=== PATIENT | male | born 1995 | race Caucasian/White ===

== ENCOUNTER 2019-01-03 15:59 | Emergency (ER) | payer OTHER ==
[2019-01-03 16:23] VITALS: BP 117/75
--- NOTE | 2019-01-03 17:02 | UC ---
Back Pain HPI - HPI Summary HPI Summary: 23-year-old male who was lifting weights while squatting and he felt some pain in his right lower back. He ambulates without difficulty. He denies any saddle anesthesia, denies any numbness or tingling in his extremities. This happened today. - History of Current Complaint Chief Complaint: UCBackPain Stated Complaint: BACK PAIN Time Seen by Provider: 01/03/19 16:55 Hx Obtained From: Patient Onset/Duration: Sudden Onset Timing: Intermittent Severity Initially: Mild Severity Currently: Mild Pain Intensity: 5 Character: Dull, Aching Aggravating Factor(s): Bending Alleviating Factor(s): Rest Associated Signs And Symptoms: Positive: Negative. Negative: Swelling, Redness , Bruising, Fever, Weakness, Numbness, Tingling, Abdominal Pain, Flank Pain, Bladder Incontinence, Bowel Incontinence, Pain with Weight Bearing - Allergies/Home Medications Allergies/Adverse Reactions: Allergies Allergy/AdvReac Type Severity Reaction Status Date / Time No Known Allergies Allergy Verified 01/03/19 16:23 Home Medications: Home Medications Ibuprofen TAB* [Motrin TAB* 400 MG] 400 mg PO Q6H PRN 01/03/19 [History Confirmed 01/03/19] PMH/Surg Hx/FS Hx/Imm Hx Previously Healthy: Yes - Surgical History Surgical History: None - Family History Known Family History: Positive: Non-Contributory - Social History Occupation: Student Alcohol Use: Weekly Substance Use Type: None Smoking Status (MU): Never Smoked Tobacco Review of Systems All Other Systems Reviewed And Are Negative: Yes Motor: Positive: Negative Neurovascular: Positive: Negative Musculoskeletal: Positive: Other: - Mild right lower back pain. Neurological: Positive: Negative Psychological: Positive: Negative Is Patient Immunocompromised?: No Physical Exam Triage Information Reviewed: Yes Appearance: Well-Appearing, No Pain Distress, Well-Nourished Vital Signs: Initial Vital Signs Temp 98.7 F 01/03/19 16:18 Pulse 75 01/03/19 16:18 Resp 16 01/03/19 16:18 BP 117/75 01/03/19 16:18 Pulse Ox 99 01/03/19 16:18 Vital Signs Reviewed: Yes Respiratory: Positive: Lungs clear, Normal breath sounds, No respiratory distress, No accessory muscle use Cardiovascular: Positive: RRR, No Murmur, Pulses Normal, Brisk Capillary Refill Abdomen Description: Positive: Nontender, No Organomegaly, Soft. Negative: CVA Tenderness (R), CVA Tenderness (L) Bowel Sounds: Positive: Present Musculoskeletal: Positive: Strength Intact, ROM Intact, Other: - Spine is nontender, lower back is nontender on palpation. Negative straight leg raise. Neurological Exam: Normal Neurological: Positive: Alert, Muscle Tone Normal, Other: - Reflexes +2 at the knee. Psychological Exam: Normal Skin Exam: Normal - No erythema, bruising, swelling or deformity noted. Back Pain Course/Dx - Course Course Of Treatment: Patient is comfortable here and appears pain free. He mostly has some right lower back pain when he is bending as in doing a squat. - Differential Dx/Diagnosis Provider Diagnosis: Low back strain Discharge ED - Sign-Out/Discharge Documenting (check all that apply): Patient Departure All imaging exams completed and their final reports reviewed: No Studies - Discharge Plan Condition: Good Disposition: HOME Patient Education Materials: Low Back Strain (ED) Referrals: [facility] - [facility] [[employer] APPLICATION, OTHER] - No Primary Care Phys,NOPCP [Primary Care Provider] - Additional Instructions: Apply ice to the sore area intermittently over the next day or 2, take ibuprofen 600 mg every 8 hours with food for pain. Avoid movements that cause pain. Follow-up at the [facility] if no improvement in 4 or 5 days. Go to the emergency room if you develop any numbness in your extremities or difficulty with bowel movements or urinating. - Billing Disposition and Condition Condition: GOOD Disposition: Home - Attestation Statements Provider Attestation: I was available for consult. This patient was seen by the [facility]. The patient was not presented to, seen by, or examined by me. -Dimitris
== END 2019-01-03 17:16 | disposition home or self-care (01) ==
LOC: UCEAST 15:59
DX: S39.012A Strain of muscle, fascia and tendon of lower back, initial encounter (principal); X50.0XXA Overexertion from strenuous movement or load, initial encounter; Y93.B3 Activity, free weights; Y92.9 Unspecified place or not applicable
CPT/HCPCS: 99201; G0463